=== PATIENT | female | born 1990 | race African-American/Black ===

== ENCOUNTER 2022-02-02 19:29 | Emergency (ER) | payer OTHER ==
[~2022-02-02] VITALS: Ht 154.9 cm; Wt 50.5 kg
--- NOTE | 2022-02-02 19:34 | PHYS DOC ---
Adult General HPI HPI Patient is a 31-year-old female, otherwise healthy presents with blood in her urine Review of Systems Review of Systems Review of systems otherwise unremarkable except noted in HPI Physical Exam Physical Exam Constitutional: Well developed, well nourished, no acute distress, non-toxic appearance. [] HENT: Normocephalic, atraumatic, oropharynx moist, Eyes: conjunctiva normal, no discharge. [] Neck: Normal range of motion, no tenderness, supple, no stridor. [] Cardiovascular:Heart rate regular rhythm, no murmur [] Lungs & Thorax: Bilateral breath sounds clear to auscultation [] Abdomen: soft, no tenderness, no masses, no pulsatile masses. [] Skin: Warm, dry, no erythema, no rash. [] Extremities: No tenderness, no cyanosis, no clubbing, ROM intact, no edema. [] Neurologic: Alert and oriented X 3, able to sit, stand and walk without issue, no focal deficits noted. [] Psychologic: Affect normal, judgement normal, mood normal. [] EKG EKG [] Radiology/Procedures Radiology/Procedures [] Heart Score C/O Chest Pain: No Risk Factors: Risk Factors: DM, Current or recent (<one month) smoker, HTN, HLP, family history of CAD, obesity. Risk Scores: Risk Factors: DM, Current or recent (<one month) smoker, HTN, HLP, family history of CAD, obesity. Course & Med Decision Making Course & Med Decision Making Patient is a 31-year-old female who presents with blood in her urine Vital signs notable for borderline tachycardia and low-grade fever. negative. Nitrite positive urinalysis. CT notable for possible mild colitis Discussed all findings with patient. Started on antibiotics in the ED. discussed symptom management at home. Discussed diet and hydration Advised to follow-up with primary care physician as soon as possible to update on ED visit and set up a follow-up appointment for reevaluation of urine Gave strict return precautions to the ED. Patient grateful, verbalized understanding and agreed with plan of discharge. Dragon Disclaimer [place]on Disclaimer This electronic medical record was generated, in whole or in part, using a voice recognition dictation system. Departure Departure: Impression: Primary Impression: Urinary tract infection Additional Impression: Colitis Disposition: HOME / SELF CARE / HOMELESS Condition: STABLE Referrals: ARSEN ELLIS Patient Instructions: Colitis, Urinary Tract Infection Additional Instructions: Thank you for coming into the emergency department tonight and allowing us to take care of you. Please read the attached information carefully to go over thi ngs we discussed. Please stay well-hydrated and eat a light clear diet over the next 7 days. Please take your antibiotics as prescribed and until gone. Please follow-up on Friday with your primary care physician update on your ED visit and set up a follow-up as soon as possible for reevaluation of your urine. Please come back with new or concerning symptoms as discussed Scripts Cephalexin (KEFLEX) 500 Mg Capsule 1 CAP PO TID for UTI for 5 Days, #15 CAP Prov: SNOW SANCHEZ MD 02/02/22 Problem Qualifiers SNOW SANCHEZ MD Feb 02, 2022 19:34
[2022-02-02 19:51] VITALS: BP 122/92
--- NOTE | 2022-02-02 20:32 | RAD ---
Examination: CT of the abdomen pelvis without contrast HISTORY: History of left flank pain COMPARISON: None available TECHNIQUE: Axial CT images of the abdomen pelvis were performed without contrast:. Coronal and sagitt al reformats are performed Exposure: One or more of the following individualized dose reduction techniques were utilized for thi s examination: 1. Automated exposure control 2. Adjustment of the mA and/or kV according to patient size 3. Use of iterative reconstruction technique FINDINGS: Mild bibasilar lung atelectasis. The evaluation of the solid organs is limited due to lack of IV con trast. The evaluation of bowel is limited due to lack of oral contrast. The visualized noncontrasted liver, spleen, adrenals grossly appears unremarkable. The gallbladder is mildly distended. The stomac h is mildly distended with visualized pancreas grossly appears unremarkable. The small bowel is nondi lated. Mild thickened appearance of the wall of the distal descending colon and sigmoid colon. No lisa dence of intrarenal collecting system calculi or hydronephrosis identified. Evaluation of the pelvis is limited. No evidence of lytic bony destructive lesion. IMPRESSION: 1. No evidence of intrarenal collecting system calculi or hydronephrosis. 2. Mild thickened appearance of the wall of the distal descending colon and sigmoid colon could be d ue to nondistention or mild colitis. Electronically signed by: Nam Coyle MD (02/02/2022 8:29 PM) [id number]
[2022-02-02 20:33] LABS: CLARITY,URINE CLOUDY; COLOR,URINE YELLOW; GLUCOSE,URINE NEG (NEG); UROBILINOGEN,URINE 0.2 mg/dL (0.2 mg/dL)
[2022-02-02 20:34] LABS: BACTERIA,URINE FEW /HPF (0-FEW); NITRITE,URINE POS (NEG); SQUAMOUS EPITHELIAL CELL,UR MANY /LPF; WBC,URINE 20-40 /HPF (0-4)
[2022-02-02] MEDS ORDERED: CEPH500C PO (20:51)
[2022-02-02] MEDS ORDERED: oxyCODONE/APAP 5/325 1 TAB TABLET PO ONE (21:00)
[2022-02-02] MEDS ORDERED: CEPHALEXIN 250 MG CAPSULE PO ONE (21:00)
[2022-02-02] MEDS ORDERED: PHENAZOPYRIDINE 200 MG TABLET. PO ONE (21:00)
[2022-02-02] MEDS ORDERED: diphenhydrAMINE HCL 25 MG CAPSULE PO ONE (21:00)
== END 2022-02-02 21:01 | disposition home or self-care (01) ==
LOC: ER 19:29
DX: N39.0 Urinary tract infection, site not specified (principal); K52.9 Noninfective gastroenteritis and colitis, unspecified
CPT/HCPCS: 74176; 81001; 81025; 87077; 87086; 87186; 99284; Q0163